=== PATIENT | female | born 1990 | race Caucasian/White ===

== ENCOUNTER 2020-04-06 03:15 | Inpatient (IN) | payer BC ==
[2020-04-06] MEDS ORDERED: PENICILLIN G POTASSIUM 5,000,000 UNIT in DEXTROSE 5% IN WATER 100 ML IVPB STA ×2 (03:41)
[2020-04-06] MEDS ORDERED: OXYTOCIN 10 UNIT/ML 1 ML VIAL IM PRN (03:41)
[2020-04-06] MEDS ORDERED: CARBOPROST TROMETHAMINE 250 MCG/ML 1 ML AMP IM PRN (03:41)
[2020-04-06] MEDS ORDERED: LIDOCAINE 0.5% (PF) 5 MG/ML (50 ML SDV) SQ PRN (03:41)
[2020-04-06] MEDS ORDERED: METHYLERGONOVINE 0.2 MG/ML 1 ML AMP IM PRN (03:41)
[2020-04-06] MEDS ORDERED: TERBUTALINE 1 MG/ML VIAL SQ PRN (03:41)
[2020-04-06] MEDS ORDERED: OXYTOCIN 30 UNITS/500 ML NS 30 UNIT in SALINE 1 500ML.BAG IV SCH (03:45)
[2020-04-06] MEDS: LACTATED RINGERS 1,000 ML IV SCH ×2 (03:56→09:50)
[2020-04-06 04:02] LABS: Basophils # (A) 0.1 k/uL (0-0.2); Basophils % (A) 1 %; Eosinophils # (A) 0.1 k/uL (0-0.7); Eosinophils % (A) 1 %; HGB 12.2 gm/dL (11.4-16.0); Lymphocytes # (A) 2.3 k/uL (1.0-4.8); Lymphocytes % (A) 28 %; MCV 91.1 fL (80.0-100.0); Mean Platelet Volume 8.7; Monocytes # (A) 0.3 k/uL (0-1.0); Monocytes % (A) 4 %; Neutrophils # (A) 5.4 k/uL (1.3-7.7); Neutrophils % (A) 65 %; Platelet Count 145 k/uL (150-450); RBC 4.06 m/uL (3.80-5.40); RDW 12.7 % (11.5-15.5); WBC 8.4 k/uL (3.8-10.6)
[2020-04-06] MEDS ORDERED: BUTORPHANOL 1 MG/ML 1 ML VIAL IV PRN (08:58)
[2020-04-06] MEDS: PENICILLIN G POTASSIUM 2,500,000 UNIT in DEXTROSE 5% IN WATER 100 ML IVPB SCH ×2 (09:25)
[2020-04-06] MEDS ORDERED: ROPIVACAINE 100 MG, fentaNYL (PF) 200 MCG in SODIUM CHLORIDE 0.9% 76 ML EPIDURAL ONE (10:20)
--- NOTE | 2020-04-06 10:52 | P.HPOB ---
History of Present Illness H&P Date: 04/06/20 Chief Complaint: My water broke at 1:15 this morning This is a 29-year-old white female 1 para 0 EDC 05/08/2020 35-2/7 weeks' gestation. Patient presents with a history of spontaneous amniorrhexis, clear fluid, at 1:15 this morning. Fetus is been active throughout the . She denies vaginal bleeding or fluid leakage. She presented with no uterine contractions. Past medical history is negative. Past surgical history significant for appendectomy.. history blood type O+, rubella status immune. VDRL testing, hepatitis B surface antigen, gonorrhea and chlamydia cultures, urine culture, Pap smear, all negative. Group B strep status unknown. One-hour Glucola within normal limits. Social history patient is a nonsmoker, she is , she denies alcohol or drug use. Family history is noncontributory. On exam patient is 5 foot 3 inches, 152 pounds, blood pressure 135/83 on admission, pulse 79. The general physical exam is within normal limits. Heart heart rate consistent with reactive NST. Cervix is 9 cm, 100%, 0 station, vertex presentation. Impression: 35-2/7 weeks intrauterine , delivery imminent. Plan: Oxytocin augmentation has been used. Penicillin G given 2 for unknown group B strep status. Anticipate normal spontaneous vaginal delivery. Review of Systems Constitutional: Reports as per HPI Past Medical History Past Medical History: No Reported History History of Any Multi-Drug Resistant Organisms: None Reported Past Surgical History: Appendectomy Past Anesthesia/Blood Transfusion Reactions: No Reported Reaction Past Psychological History: No Psychological Hx Reported Smoking Status: Never smoker - Past Family History Father Family Medical History: No Reported History Mother Family Medical History: No Reported History Medications and Allergies Home Medications Medication Instructions Recorded Confirmed Type Pnv No.95/Ferrous Fum/Folic AC 1 tab PO DAILY 04/06/20 04/06/20 History [ Multivitamin Tablet] Allergies Allergy/AdvReac Type Severity Reaction Status Date / Time No Known Allergies Allergy Verified 04/06/20 03:16 Exam Vital Signs Temp Pulse Resp BP Pulse Ox 04/06/20 04:18 98.1 F 79 16 141/94 97 04/06/20 03:40 97.9 F 79 16 135/83 97 04/06/20 03:19 98.1 F 79 16 141/94 Intake and Output 04/05/20 04/06/20 04/06/20 22:59 06:59 14:59 Other: # Voids 2 Weight 68.946 kg See dictation under HPI please Results Result Diagrams: 04/06/20 03:45 Abnormal Lab Results - Last 24 Hours (Table) 04/06/20 Range/Units 03:45 Plt Count 145 L (150-450) k/uL Assessment and Plan Assessment: 35-2/7 weeks intrauterine , spontaneous labor. Antibiotics given 2. Plan: Anticipate normal spontaneous vaginal delivery. Time with Patient: Less than 30
--- NOTE | 2020-04-06 11:40 | P.PROBDLV ---
Vaginal Delivery Note - . Vaginal Delivery Note: This is a 29-year-old white female 1 para 0 EDC 05/08/2020 a 35-2/7 weeks' gestation. Patient presented with spontaneous amniorrhexis which occurred at home, clear fluid. Group B strep status unknown, otherwise essentially normal . Rubella status immune, blood type O+, please see dictated history and physical for details. Oxytocin augmentation was started and epidural was placed per her request. She progressed well through the first stage of labor and became completely dilated at 1050 hrs. Perineal body was prepped and draped in usual sterile fashion. With excellent maternal expulsive efforts the head delivered occiput anterior and restituted accordingly. Patient rapidly delivered a liveborn male infant with scores of 8 and 9 at one and 5 minutes respectively. The baby weighed 4 lbs. 9 oz. or 2065 g. Placenta delivered spontaneously, it was inspected and noted to be intact with trivascular cord at 07/26/2008 hours. Perineal body was then redraped. Careful inspection of the cervix, vagina, perineum, periurethral, and perirectal areas revealed a small second-degree perineal laceration. This was injected with lidocaine and repaired in the usual fashion using 3-0 repeat suture. Placenta is sent to pathology for evaluation secondary to early gestational age. All sponge needle and enhancement counts are correct at the end of the procedure. Total estimated blood loss 200 mL's. Fundus is firm and in the midline, symmetric and 18 week size upon completion of delivery. Patient is requesting circumcision for her infants. Please note that penicillin G was given for 2 doses per protocol for unknown group B strep status, and manager battery was present at the time of delivery again for early gestational age.
[2020-04-06] MEDS ORDERED: diphenhydrAMINE 25 MG CAP PO PRN (12:36)
[2020-04-06] MEDS ORDERED: diphenhydrAMINE 50 MG/ML 1 ML VIAL IVP PRN ×2 (12:36)
[2020-04-06] MEDS ORDERED: SIMETHICONE 80 MG CHEWABLE PO PRN (12:36)
[2020-04-06] MEDS ORDERED: ZOLPIDEM 5 MG TAB PO PRN (12:36)
[2020-04-06] MEDS ORDERED: HYDROCORTISONE 2.5% RECTAL CREAM 30 GM TUBE RECTAL PRN (12:36)
[2020-04-06] MEDS ORDERED: LANOLIN CREAM 5 GM TUBE TOPICAL PRN (12:36)
[2020-04-06] MEDS ORDERED: BENZOCAINE/MENTHOL SPRAY 1 GM/SPRAY AEROSOL TOPICAL PRN (12:36)
[2020-04-06] MEDS ORDERED: diphenhydrAMINE 50 MG CAP PO PRN (12:36)
[2020-04-06] MEDS ORDERED: IBUPROFEN 600 MG TAB PO PRN (12:36)
[2020-04-06] MEDS ORDERED: ACETAMINOPHEN TAB 325 MG TAB PO PRN (12:36)
[2020-04-06] MEDS ORDERED: OXYTOCIN 20 UNITS/1000 ML NS 1,000 ML IV SCH (12:45)
[2020-04-06 16:31] VITALS: RESP 16
[2020-04-06] MEDS: SENNOSIDES-DOCUSATE SODIUM 1 EACH TAB PO SCH (19:36)
[2020-04-07 06:32] LABS: Basophils % (A) 0 %; Eosinophils # (A) 0.1 k/uL (0-0.7); Eosinophils % (A) 1 %; HGB 11.2 gm/dL (11.4-16.0); Lymphocytes % (A) 21 %; MCH 30.3 pg (25.0-35.0); MCHC 32.9 g/dL (31.0-37.0); MCV 92.2 fL (80.0-100.0); Mean Platelet Volume 8.7; Monocytes # (A) 0.4 k/uL (0-1.0); Monocytes % (A) 4 %; Neutrophils # (A) 6.8 k/uL (1.3-7.7); Neutrophils % (A) 73 %; Platelet Count 128 k/uL (150-450); RBC 3.69 m/uL (3.80-5.40); RDW 12.8 % (11.5-15.5); WBC 9.4 k/uL (3.8-10.6)
--- NOTE | 2020-04-07 07:51 | P.PN ---
Subjective Progress Note Date: 04/07/20 Principal diagnosis: day #1 Slept well. Minimal lochia rubra. No pain, feeling well. Objective - Vital Signs Vital signs: Vital Signs Temp 98 F 04/07/20 00:00 Pulse 81 04/07/20 00:00 Resp 16 04/07/20 00:00 BP 130/76 04/07/20 00:00 Pulse Ox 98 04/07/20 00:00 Intake & Output 04/06/20 04/07/20 04/07/20 18:59 06:59 18:59 Other: # Voids 1 1 - Constitutional General appearance: Present: average body habitus, cooperative - EENT Eyes: Present: PERRLA ENT: Present: hearing grossly normal - Respiratory Respiratory: bilateral: CTA - Cardiovascular Rhythm: regular - Gastrointestinal Gastrointestinal Comment(s): Fundus firm, midline, symmetric, 18 week size, nontender. General gastrointestinal: Present: normal bowel sounds - Integumentary Integumentary: Present: normal - Neurologic Neurologic: Present: CNII-XII intact - Musculoskeletal Musculoskeletal: Present: gait normal, strength equal bilaterally - Psychiatric Psychiatric: Present: A&O x's 3, appropriate affect, intact judgment & insight - Labs CBC & Chem 7: 04/07/20 05:38 Labs: Abnormal Lab Results - Last 24 Hours (Table) 04/07/20 Range/Units 05:38 RBC 3.69 L (3.80-5.40) m/uL Hgb 11.2 L (11.4-16.0) gm/dL Plt Count 128 L (150-450) k/uL Assessment and Plan Assessment: Doing quite well day #1. Plan: Continue care. infant in the nursery. Anticipate discharge home tomorrow. Time with Patient: Less than 30
[2020-04-07] MEDS: SENNOSIDES-DOCUSATE SODIUM 1 EACH TAB PO SCH ×2 (08:03→21:19)
[2020-04-07] MEDS: LACTATED RINGERS 1,000 ML IV SCH (12:31)
[2020-04-07] MEDS: PENICILLIN G POTASSIUM 2,500,000 UNIT in DEXTROSE 5% IN WATER 100 ML IVPB SCH ×2 (12:31)
[2020-04-08 08:34] VITALS: BP 132/90; PULSE 69; TEMP 97.9
[2020-04-08] MEDS: SENNOSIDES-DOCUSATE SODIUM 1 EACH TAB PO SCH (08:34)
--- NOTE | 2020-04-08 12:47 | P.DS ---
Providers Date of admission: 04/06/20 03:29 Expected date of discharge: 04/08/20 Attending physician: Pamela Hatfield Primary care physician: Stated None Hospital Course: This is a 29-year-old white female 1 para 0 EDC 05/08/2020 at 35-2/7 weeks' gestation. Patient presented with spontaneous amniorrhexis which occurred at home, clear fluid. [place] strep culture status unknown, otherwise unremarkable, rubella status immune, blood type O positive. Please see dictated history and physical for details. Antibiotics were given prophylactically and she did receive 2 doses of penicillin G per hospital protocol. She went on to vaginally deliver a liveborn male with scores of 8 and 9 at one and 5 minutes respectively. There was a small second-degree perineal laceration easily repaired. weighed 4 lbs. 9 oz. or 2065 g. Estimated blood loss recorded of 200 mL's. Please see dictated delivery note for details. This morning the patient is doing well. She is voiding, ambulating, passing flatus without difficulty. Vital signs are stable and she is afebrile. Fundus is firm and in the midline, symmetric and 18 week size. Breasts are not engorged. Breast-feeding is going well. Because of early gestational age is to stay in the nursery for another several days per pediatricians recommendations. Patient however is judged to be in excellent condition for discharge home. She will follow-up with me in the office in 6 weeks. I have reminded her no intercourse, tampons or douching. She will use [id number] Advil or Aleve, or Motrin as needed for pain. She will call with any fevers shakes or chills, foul smelling or copious lochia, with the passage of large blood clots, with any pain not alleviated by [id number] products, or indeed with any concerns. Assessment: Doing well day number two Patient Condition at Discharge: Good Plan - Discharge Summary Discharge Rx Participant: No New Discharge Prescriptions: No Action Pnv No.95/Ferrous Fum/Folic AC [ Multivitamin Tablet] 1 tab PO DAILY Discharge Medication List Pnv No.95/Ferrous Fum/Folic AC [ Multivitamin Tablet] 1 tab PO DAILY 04/06/20 [History] Follow up Appointment(s)/Referral(s): Pamela Hatfield MD [STAFF PHYSICIAN] - 6 Weeks Discharge Disposition: HOME SELF-CARE
== END 2020-04-08 13:45 | disposition home or self-care (01) | DRG 807 ==
LOC: FBPOP 03:15 → 4FBP 03:29
PROVIDERS: ADMIT Obstetrics & Gynecology; ATTEND Obstetrics & Gynecology
PROC: 0KQM0ZZ Repair Perineum Muscle, Open Approach (ICD-10-PCS; principal; 2020-04-06)
PROC: 00HU33Z Insertion of Infusion Device into Spinal Canal, Percutaneous Approach (ICD-10-PCS; principal; 2020-04-06)
PROC: 10E0XZZ Delivery of Products of Conception, External Approach (ICD-10-PCS; principal; 2020-04-06)
PROC: 3E033VJ Introduction of Other Hormone into Peripheral Vein, Percutaneous Approach (ICD-10-PCS; principal; 2020-04-06)
PROC: 3E0R3NZ Introduction of Analgesics, Hypnotics, Sedatives into Spinal Canal, Percutaneous Approach (ICD-10-PCS; principal; 2020-04-06)
DX: O42.013 Preterm premature rupture of membranes, onset of labor within 24 hours of rupture, third trimester (principal); Z37.0 Single live birth; Z3A.35 35 weeks gestation of pregnancy; O70.1 Second degree perineal laceration during delivery; Z90.49 Acquired absence of other specified parts of digestive tract
CPT/HCPCS: 59025; 84112; 85025; 86850; 86900; 86901; 88307; 99213